=== PATIENT | male | born 1980 | race Caucasian/White ===

== ENCOUNTER → 2025-01-29 | Emergency (ER) | payer BC ==
[~2025-01-29] VITALS: Ht 180.3 cm; Wt 93.0 kg
[~2025-01-29] MED LIST: GELATIN SPONGE,ABSORBABLE 1 EA SPONGE TP ONE; HYDROCODONE/APAP 5/325MG TABLET ONE
[2025-01-29 22:52] VITALS: BP 133/93; TEMP 98.4; O2SAT 98
[2025-01-29] MEDS: GELATIN SPONGE,ABSORBABLE 1 SPONGE SPONGE TP ONE (23:02)
[2025-01-29] MEDS: HYDROCODONE/APAP 5/325MG TABLET PO ONE (23:12)
== END | disposition home or self-care (01) ==
LOC: ER 22:15
DX: S61.200A Unspecified open wound of right index finger without damage to nail, initial encounter (principal); W26.8XXA Contact with other sharp object(s), not elsewhere classified, initial encounter; Y93.89 Activity, other specified; Y92.89 Other specified places as the place of occurrence of the external cause; Y99.8 Other external cause status